=== PATIENT | male | born 1945 | race Caucasian/White ===

== ENCOUNTER 2020-03-02 21:00 | Emergency (ER) | payer MEDICARE ==
[~2020-03-02] VITALS: Ht 183.5 cm; Wt 77.1 kg
--- NOTE | 2020-03-02 21:00 | NUR ---
ED Nurse Note: Pt brought in by ambulance from home. Pt was in his WC and leaned forward falling and hitting head on table, Pt presents with lac on top of head, not actively bleeding. Pt denies LOC, V SS, Pt is A&Ox4. ERMD at bedside
--- NOTE | 2020-03-02 21:09 | Emergency Room Report ---
History of Present Illness General Chief Complaint: Multiple Trauma/Fall Source: Patient, EMS (David Elias MD) Present Illness HPI Disclaimer: Please note that this report is being documented using [email or web address] technology. This can lead to erroneous entry secondary to incorrect interpretation by the dictating instrument. HPI: 74-year-old male presents for evaluation after a fall with a scalp laceration. 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 He sustained a laceration which was covered with a bandage by his daughter. There was no loss of consciousness, he remembers the entire incident. Denies neck pain or back pain. No other injury reported. Cannot recall last tetanus. 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 Denies any syncopal episode, preceding lightheadedness, palpitations, shortness of breath or recent illness. PMH: Diabetes, hypertension, hyperlipidemia PSH: Right AKA, skin biopsy scalp Allergies: None reported Social Hx: Reviewed (David Elias MD) Allergies: Coded Allergies: No Known Allergies (Unverified , 03/02/20) COVID-19 Screening Contact w/high risk pt: No Recent Travel to affected area: No Experienced COVID-19 symptoms?: No (David Elias MD) Nursing Documentation-PMH Hx Hypertension: Yes Hx Diabetes: Yes (David Elias MD) Review of Systems All Other Systems: negative except mentioned in HPI (David Elias MD) Physical Exam Vital Signs Date Time Temp Pulse Resp B/P (MAP) Pulse Ox O2 Delivery O2 Flow Rate FiO2 03/02/20 20:53 98.2 88 18 150/79 (102) 98 Room Air General: Awake and alert, no acute distress HEENT: Normocephalic. There is a scalp laceration with a V-shaped flap measuring approximately 4 cm. The galea and the skull are exposed. Some of the skin has been avulsed. No tenderness or soft tissue swelling over the facial bones. EOMI. PERRLA. No septal hematoma. No oral lacerations. No malocclusion Neck: Supple, trachea midline. Arrives without cervical collar Chest Wall: No tenderness, no deformity, no crepitus CV: RRR. S1 and S2 normal. No murmur appreciated Resp: Normal work of breathing. No cough, wheezing or crackles appreciated Skin: V-shaped laceration over the top of the scalp with flap present measuring approximately 4 cm. Circular lesion action approximate 2 cm in diameter anterior to the laceration from prior biopsy. Appears to be healing. MSK: Normal tone and bulk. Right lower extremity AKA site is clean dry and intact Neuro: Awake and alert. Mentating appropriately Spine: There is no tenderness, step-off or deformity in the cervical, thoracic or lumbosacral spine. (David Elias MD) Procedures Laceration/Wound Repair Laceration/Wound Repair : Consent: Verbal Wound Location: head Wound's Depth, Shape: flap Wound Explored: no foreign body removed Anesthesia: Lidocaine w/ Epi Wound Debrided: None Wound Repaired With: sutures Suture Size/Type: 5:0 Number of Sutures: 1 Layer Closure?: No Sterile Dressing Applied?: Yes Patient Tolerated: Well Complications: None Progress This was a difficult laceration as the skin was very thin. We attempted full closure of the flap avulsion type laceration however skin could not hold the sutures as it was very frail so wound was dressed with a Xeroform gauze and a sterile gauze. (Lv Simon M.D.) Medical Decision Making ER Course 74-year-old male presents for evaluation of head injury sustained in a fall from his wheelchair. There is no loss of consciousness. She has no complaints at this time. He has a laceration over the top of his scalp which has exposed galea and skull. The skin has been avulsed and is difficult to approximate. His tetanus was updated and wound was irrigated under pressure with copious fluids. No obvious debris was noted. Will obtain a CT scan to evaluate for intracranial injury. (David Elias MD) ER Course Patient signed out to me pending CT scan of the brain. CT scan of the brain did not demonstrate any acute abnormality. The previous provider and I attempted closure of the wound however due to patient's frail skin and tense skin we were unable to suture wound. The skin could not tolerate sutures being placed. Patient did have a small amount of exposed skull. The wound was cleaned extensively in the ER and a Xeroform gauze was placed on the wound. Discussed the wound with surgery who did recommend that wound could be closed by secondary intention. Patient will be discharged in care of the daughter with prophylactic antibiotics and instructions to clean wound daily with application of antibiotic ointment. Patient to follow-up with primary care doctor or here in 10 days for removal of the single suture. Return sooner for any worsening symptoms concerns or signs of infection. (Lv Simon M.D.) CT/MRI/US Diagnostic Results CT/MRI/US Diagnostic Results : Imaging Test Ordered: CT scan of the brain Impression CT head without contrast History: Injury Technique: Axial noncontrast head CT with coronal reformatted images. CTDI is 53.4 mGy and DLP is 1062.1 mGy-cm. Technique more: One or more of the following dose reduction techniques were used: automated exposure control, adjustment of the mA and/or kV according to patient size, use of iterative reconstruction technique. Comparison: None Findings: Mild prominence of the ventricles and extra-axial CSF spaces consistent with involutional changes. No acute intracranial hemorrhage mass-effect or edema is seen. Subtle increased density in right parietal cortex axial image 6: 10, coronal image 5: 15. A draining vessel is suggested. Mild left parietal scalp swelling. Left mid ann calcification is seen. Posterior fossa, cerebellar tonsils are normal. Bilateral lens replacement surgery. Paranasal sinuses, mastoid air cells are clear. Impression: 1. Mild left parietal scalp swelling. 2. No acute intracranial finding. (Lv Simon M.D.) Last Vital Signs Date Time Temp Pulse Resp B/P (MAP) Pulse Ox O2 Delivery O2 Flow Rate FiO2 03/02/20 20:53 98.2 88 18 150/79 (102) 98 Room Air (David Elias MD) Status: improved (Lv Simon M.D.) Disposition: HOME, SELF-CARE Condition: Stable Scripts Bacitracin (BACITRACIN*) 1 Each Packet 1 PACKET TOPIC BID, #30 PACKET 0 Refills Prov: Lv Simon M.D. 03/02/20 Cephalexin* (KEFLEX*) 500 Mg Capsule 500 MG ORAL EVERY 8 HOURS, #21 CAP Prov: Lv Simon M.D. 03/02/20 David Elias MD March 02, 2020 21:09 Lv Simon M.D. March 02, 2020 23:45
[2020-03-02] MEDS ORDERED: Tetanus/Diptheria/Pertussis IM ONE (21:15)
[2020-03-02 21:16] VITALS: BP 150/79
[2020-03-02] MEDS ORDERED: Lidocaine 1% 10mg/ml/EPI 0.01mg/ml 30ml INJ ONE (21:30)
--- NOTE | 2020-03-02 22:49 | NUR ---
ED Nurse Note: pt to CT
--- NOTE | 2020-03-02 23:02 | NUR ---
ED Nurse Note: Pt back from CT
--- NOTE | 2020-03-02 23:08 | Diagnostic Imaging Report ---
CT head without contrast History: Injury Technique: Axial noncontrast head CT with coronal reformatted images. CTDI is 53.4 mGy and DLP is 1062.1 mGy-cm. Technique more: One or more of the following dose reduction techniques were used: automated exposure control, adjustment of the mA and/or kV according to patient size, use of iterative reconstruction technique. Comparison: None Findings: Mild prominence of the ventricles and extra-axial CSF spaces consistent with involutional changes. No acute intracranial hemorrhage mass-effect or edema is seen. Subtle increased density in right parietal cortex axial image 6: 10, coronal image 5: 15. A draining vessel is suggested. Mild left parietal scalp swelling. Left mid ann calcification is seen. Posterior fossa, cerebellar tonsils are normal. Bilateral lens replacement surgery. Paranasal sinuses, mastoid air cells are clear. Impression: 1. Mild left parietal scalp swelling. 2. No acute intracranial finding.
[2020-03-02] MEDS ORDERED: CEPHALEXIN500 MG ORAL (23:37)
[2020-03-02] MEDS ORDERED: BACITRACIN10 GM TOP (23:37)
--- NOTE | 2020-03-02 23:37 | NUR ---
ED Nurse Note: spoke with daughter Camila, she will be here in 30 mins
[2020-03-02] MEDS ORDERED: BACITRACIN1 EACH TOPIC ×2 (23:39)
--- NOTE | 2020-03-03 00:10 | NUR ---
ER DISCHARGE NOTE: Patient is cleared to be discharged per ERMD, pt is aox4, on room air, with stable vital signs. pt was given dc and prescription instructions, pt was able to verbalize understanding, pt id band and iv site removed without complications.assisted pt to WC and into daughter's car. pt took all belongings.
== END 2020-03-03 00:10 | disposition home or self-care (01) ==
LOC: EDBD 21:00 → EMR 22:18
DX: S01.01XA Laceration without foreign body of scalp, initial encounter (principal); W22.8XXA Striking against or struck by other objects, initial encounter; Y92.9 Unspecified place or not applicable; Z99.3 Dependence on wheelchair; E11.9 Type 2 diabetes mellitus without complications; I10 Essential (primary) hypertension; E78.5 Hyperlipidemia, unspecified; Z89.611 Acquired absence of right leg above knee; Z23 Encounter for immunization
CPT/HCPCS: 70450; 90471; 90715; 99284

== ENCOUNTER 2020-03-12 12:39 | Emergency (ER) | payer MEDICARE ==
[~2020-03-12] VITALS: Ht 182.9 cm; Wt 74.8 kg
[~2020-03-12 12:39] MED LIST: BACITRACIN1 EACH TOPIC; BACITRACIN10 GM TOP; CEPHALEXIN500 MG ORAL
--- NOTE | 2020-03-12 12:56 | NUR ---
ED Nurse Note: Pt brought to ED by daughter from home for stitches removal. Pt had stitches on top of head, no discharge. Pt is alert and orientedx4, wheelchair bound. He denies coughing, bodyaches, chills, fever.
[2020-03-12 12:58] VITALS: BP 142/71
--- NOTE | 2020-03-12 13:29 | Emergency Room Report ---
History of Present Illness General Chief Complaint: Wound Recheck/Suture Removal Source: Patient, Family Member Present Illness HPI 74 YO male presents to the ED c/o recent scalp laceration which requires suture removal. Pt. denies pain at this time. His daughter has been caring for the wound and applying bacitracin and dressings. Pt. denies erythema, bleeding, discharge, fevers or chills. Pt. denies any other symptoms at this time. Allergies: Coded Allergies: No Known Allergies (Unverified , 03/02/20) COVID-19 Screening Contact w/high risk pt: No Recent Travel to affected area: No Experienced COVID-19 symptoms?: No COVID-19 Testing performed [employer]: No Patient History Past Medical History: see triage record Past Surgical History: none Pertinent Family History: none Reviewed Nursing Documentation: PMH: Agreed; PSxH: Agreed Nursing Documentation-PMH Past Medical History: No History, Except For Hx Hypertension: Yes Hx Diabetes: Yes Hx Cancer: Yes - skin Review of Systems All Other Systems: negative except mentioned in HPI Physical Exam Vital Signs Date Time Temp Pulse Resp B/P (MAP) Pulse Ox O2 Delivery O2 Flow Rate FiO2 03/12/20 12:45 98.8 80 16 147/78 (101) 98 Room Air Sp02 EP Interpretation: reviewed, normal General Appearance: no apparent distress, alert, GCS 15, non-toxic Head: normocephalic, other - Healing macerated laceration with avulsion of the scalp, two sutures in place, no erythema or warmth. Eyes: bilateral eye normal inspection, bilateral eye PERRL ENT: hearing grossly normal, normal voice Neck: full range of motion Respiratory: lungs clear, normal breath sounds, speaking full sentences Cardiovascular #1: regular rate, rhythm Musculoskeletal: normal range of motion, gait/station normal, non-tender Neurologic: alert, motor strength/tone normal, oriented x3, sensory intact, responsive, speech normal Psychiatric: judgement/insight normal Skin: wd healing/no infection noted - Healing macerated laceration with avulsion of the scalp, two sutures in place, no erythema or warmth. Medical Decision Making PA Attestation Dr. Mueller is my supervising Physician whom patient management has been discussed with. Diagnostic Impression: Primary Impression: Encounter for dressing change or suture removal ER Course 74 YO male presents to the ED c/o recent scalp laceration which requires suture removal. Pt. denies pain at this time. His daughter has been caring for the wound and applying bacitracin and dressings. Pt. denies erythema, bleeding, discharge, fevers or chills. Pt. denies any other symptoms at this time. Ddx considered but are not limited to laceration, tendon injury, cellulitis, dehiscence. Vital signs: are WNL, pt. is afebrile H&PE are most consistent with: healing laceration of the scalp ORDERS: none required at this time, the diagnosis is clinical ED INTERVENTIONS: - 2 Sutures removed. DISCHARGE: At this time pt. is stable for d/c to home. Will provide printed patient care instructions, and any necessary prescriptions. Care plan and follow up instructions have been discussed with the patient prior to discharge. Last Vital Signs Date Time Temp Pulse Resp B/P (MAP) Pulse Ox O2 Delivery O2 Flow Rate FiO2 03/12/20 12:58 98.8 77 17 142/71 99 Room Air Disposition: HOME, SELF-CARE Condition: Stable Referrals: [facility] (PCP) Patient Instructions: Suture Removal, Care After Additional Instructions: Take any previously prescribed medications as directed. Allow wounds to air out frequently Follow up with a Primary Care Provider in 3-5 days, even if your symptoms have resolved. Return sooner to ED if new symptoms occur, or current symptoms become worse. - Please note that this Emergency Department Report was dictated using [employer] technology software, occasionally this can lead to erroneous entry secondary to interpretation by the dictation equipment. Viktoria Garcia March 12, 2020 13:29
[2020-03-12 13:38] VITALS: BP 142/71
--- NOTE | 2020-03-12 13:39 | NUR ---
ER DISCHARGE NOTE: Patient is cleared to be discharged per SAG[facility], pt is aox4, on room air, with stable vital signs. pt was given dc instructions, pt was able to verbalize understanding, pt id band removed without complications. pt is able to ambulate with steady gait. pt took all belongings.
== END 2020-03-12 13:33 | disposition home or self-care (01) ==
LOC: EMR 13:05
DX: Z48.02 Encounter for removal of sutures (principal); I10 Essential (primary) hypertension; E11.9 Type 2 diabetes mellitus without complications; Z85.828 Personal history of other malignant neoplasm of skin
CPT/HCPCS: 99281